=== PATIENT | male | born 1945 | race Caucasian/White ===

== ENCOUNTER → 2017-03-13 | Outpatient (CLI) | payer MEDICARE, BC ==
[2015-03-02 05:02] VITALS: BP 142/92
[~2017-03-13] MED LIST: BENICAR HCT 12.1 TA1 PO; BETAPACE120 MG PO; FUROSEMIDE40 MG PO; GOOD NEIGHBOR P81 MG PO; HYTRIN5 M1 PO; IRBESARTAN PO; NOVAPLUS DE100 MG/ML; ZOCOR10 MG PO; [UNRECOGNIZED DRUG - OTHER] PO
== END ==
LOC: RAD 11:52
DX: R42 Dizziness and giddiness (principal); R03.0 Elevated blood-pressure reading, without diagnosis of hypertension; J32.0 Chronic maxillary sinusitis

== ENCOUNTER → 2017-04-21 | Outpatient (CLI) | payer MEDICARE, BC ==
[2015-03-02 05:02] VITALS: BP 142/92
== END ==
LOC: RAD 10:12
DX: N20.0 Calculus of kidney (principal)

== ENCOUNTER → 2017-12-23 | Outpatient (CLI) | payer MEDICARE, BC ==
[2015-03-02 05:02] VITALS: BP 142/92
== END ==
LOC: RAD 08:48
DX: N20.0 Calculus of kidney (principal)

== ENCOUNTER → 2018-05-25 | Outpatient (CLI) | payer MEDICARE, BC | LOC: RAD 13:18 | DX: N20.0 Calculus of kidney (principal) ==

== ENCOUNTER 2019-01-07 11:00 | Outpatient (RCR) | payer MEDICARE, BC ==
[2015-03-02 05:02] VITALS: BP 142/92
[~2019-01-07 11:00] MED LIST changes: +ASPIRIN E.C. 8181 MG PO; +BETAPACE120 M1 PO; -BETAPACE120 MG PO; -GOOD NEIGHBOR P81 MG PO
== END 2019-01-07 11:30 | disposition still patient (30) ==
LOC: PT 11:00
DX: M54.2 Cervicalgia (principal)

== ENCOUNTER 2019-01-07 11:30 | Outpatient (RCR) | payer MEDICARE, BC ==
[2015-03-02 05:02] VITALS: BP 142/92
[2019-01-14] MEDS ORDERED: HYDROCHLOROTHIA50 M1 PO (18:35)
[2019-01-14] MEDS ORDERED: SERTRALINE HYD100 MG PO (18:36)
[2019-01-14] MEDS ORDERED: REQUIP XL12 MG PO (18:36)
[2019-01-14] MEDS ORDERED: SINGULAIR PO (18:37)
[2019-01-14] MEDS ORDERED: SINEMET 25-1001 EACH PO (18:41)
[2019-01-14] MEDS ORDERED: LOPRESSOR 550 MG/TAB PO (18:42)
[2019-01-14] MEDS ORDERED: AVAPRO300 M1 PO (18:43)
[2019-01-14] MEDS ORDERED: ATORVASTATIN CA80 MG PO (20:40)
== END 2019-02-09 | disposition home or self-care (01) ==
LOC: PT
DX: G20 Parkinson's disease (principal); G25.81 Restless legs syndrome

== ENCOUNTER 2019-01-14 17:26 | Observation (INO) | payer MEDICARE, BC ==
[~2019-01-14] VITALS: Ht 185.4 cm; Wt 122.6 kg
[2019-01-14 18:14] VITALS: BP 127/70
[2019-01-14 18:19] LABS: EOS % 0.4 % (0.0-4.0); HEMATOCRIT 41.5 % (42.0-52.0); HEMOGLOBIN 13.6 g/dL (13.5-18.0); LYMPH# 0.8 (1.50-4.00); MEAN CELL VOLUME 95 fl (78-100); MEAN CORPUSCULAR HEMOGLOBIN 31 pg (27-31); MEAN CORPUSCULAR HGB CONC 33 g/dL (33-37); MONO # 0.6 (0.20-0.80); NEU # 4.1 (1.40-6.50); PLATELET COUNT 162 K/mm3 (130-400); RED BLOOD COUNT 4.36 M/mm3 (4.20-5.60); RED CELL DISTRIBUTION WIDTH 13.8 % (11.5-14.5); WHITE BLOOD COUNT 5.6 K/mm3 (4.8-10.8)
[2019-01-14 18:31] LABS: ALBUMIN 4.1 g/dL (3.4-4.8); POTASSIUM 3.5 mmol/L (3.5-5.1); SODIUM 139 mmol/L (136-145)
[2019-01-14 18:32] LABS: CALCIUM 9.3 mg/dL (8.3-10.5)
[2019-01-14 18:33] LABS: GLUCOSE 103 mg/dL (75-110)
[2019-01-14 18:34] LABS: CARBON DIOXIDE 29 mmol/L (23-31)
[2019-01-14 18:35] LABS: TOTAL BILIRUBIN 3.2 mg/dL (0.2-1.2)
[2019-01-14] MEDS ORDERED: HYDROCHLOROTHIA50 M1 PO (18:35)
[2019-01-14] MEDS ORDERED: SERTRALINE HYD100 MG PO (18:36)
[2019-01-14] MEDS ORDERED: REQUIP XL12 MG PO (18:36)
[2019-01-14] MEDS ORDERED: SINGULAIR PO (18:37)
[2019-01-14 18:38] LABS: AST-SGOT 30 U/L (5-34)
[2019-01-14 18:40] LABS: ALT/SGPT 31 U/L (0-55)
[2019-01-14] MEDS ORDERED: SINEMET 25-1001 EACH PO (18:41)
[2019-01-14] MEDS ORDERED: LOPRESSOR 550 MG/TAB PO (18:42)
[2019-01-14] MEDS ORDERED: AVAPRO300 M1 PO (18:43)
[2019-01-14 18:47] LABS: TROPONIN-I < 0.03 ng/mL (<0.030)
[2019-01-14 19:46] LABS: URINE WBC 0 /hpf (0-3)
[2019-01-14 20:16] LABS: URINE APPEARANCE CLEAR; URINE BILIRUBIN 2+ (NEGATIVE); URINE BLOOD NEGATIVE (NEGATIVE); URINE COLOR AMBER; URINE GLUCOSE NEGATIVE (NEGATIVE); URINE KETONE NEGATIVE (NEGATIVE); URINE LEUKOCYTE ESTERASE NEGATIVE (NEGATIVE); URINE NITRATE NEGATIVE (NEGATIVE); URINE PROTEIN(semi-quant) TRACE mg/dL (NEGATIVE); URINE UROBILINOGEN 1 mg/dL (NORMAL)
[2019-01-14 20:17] LABS: URINE MUCUS PRESENT (NOT PRESENT)
[2019-01-14] MEDS ORDERED: ATORVASTATIN CA80 MG PO (20:40)
[2019-01-14 22:35] VITALS: BP 147/77
[2019-01-14 23:00] VITALS: BP 123/72
[2019-01-15 03:00] VITALS: BP 118/60
[2019-01-15 06:12] VITALS: BP 130/79
[2019-01-15 08:40] LABS: CALCIUM 8.5 mg/dL (8.3-10.5); POTASSIUM 3.1 mmol/L (3.5-5.1)
[2019-01-15 09:17] LABS: TOTAL PROTEIN 5.7 g/dL (6.2-8.1)
[2019-01-15 09:20] LABS: ALBUMIN 3.5 g/dL (3.4-4.8)
[2019-01-15 11:08] VITALS: BP 139/78
[2019-01-15 14:58] VITALS: BP 102/64
== END 2019-01-15 18:00 | disposition home health service (06) ==
LOC: ED 17:26 → MED/SURG 19:45
PROVIDERS: Nurse Practitioner Primary Care; ADMIT Physician Assistant
DX: E86.0 Dehydration (principal); I95.1 Orthostatic hypotension; N28.9 Disorder of kidney and ureter, unspecified; G20 Parkinson's disease; Z91.81 History of falling; E80.7 Disorder of bilirubin metabolism, unspecified; M25.562 Pain in left knee; Z79.82 Long term (current) use of aspirin; Z79.899 Other long term (current) drug therapy
CPT/HCPCS: 90715; G0378; J1650; J7030; Q9967

== ENCOUNTER → 2019-01-18 | Outpatient (CLI) | payer MEDICARE, BC ==
[2019-01-15 14:58] VITALS: BP 102/64
[~2019-01-18] MED LIST changes: +ATORVASTATIN CA80 MG PO; +AVAPRO300 M1 PO; +HYDROCHLOROTHIA50 M1 PO; +LOPRESSOR 550 MG/TAB PO; +REQUIP XL12 MG PO; +SERTRALINE HYD100 MG PO; +SINEMET 25-1001 EACH PO; +SINGULAIR PO
== END ==
LOC: RAD 11:20
DX: I65.29 Occlusion and stenosis of unspecified carotid artery (principal); W19.XXXA Unspecified fall, initial encounter

== ENCOUNTER → 2019-01-21 | Outpatient (CLI) | payer MEDICARE, BC ==
[2019-01-15 14:58] VITALS: BP 102/64
== END ==
LOC: VAS 15:52 → RAD 16:00
DX: R29.6 Repeated falls (principal)

== ENCOUNTER 2020-04-24 15:37 | Emergency (ER) | payer MEDICARE, BC ==
[~2020-04-24] VITALS: Wt 118.0 kg
[2020-04-24 17:10] LABS: HEMATOCRIT 41.4 % (42.0-52.0); HEMOGLOBIN 13.3 g/dL (13.5-18.0); MEAN CELL VOLUME 97 fl (78-100); MEAN CORPUSCULAR HEMOGLOBIN 31 pg (27-31); MEAN CORPUSCULAR HGB CONC 32 g/dL (33-37); MEAN PLATELET VOLUME 9.9 fl (7.4-10.4); PLATELET COUNT 135 K/mm3 (130-400); POTASSIUM 3.7 mmol/L (3.5-5.1); RED BLOOD COUNT 4.27 M/mm3 (4.20-5.60); WHITE BLOOD COUNT 5.2 K/mm3 (4.8-10.8)
[2020-04-24 17:13] LABS: TOTAL PROTEIN 6.5 g/dL (6.2-8.1)
[2020-04-24 17:14] LABS: LYMPHOCYTE 13 % (20-51); MONOCYTE 11 % (3-10); NEUTROPHILS 75 % (42-75); TOTAL BILIRUBIN 4.7 mg/dL (0.2-1.2)
[2020-04-24 17:25] LABS: TROPONIN-I 0.04 ng/mL (<0.030)
[2020-04-24 17:42] LABS: PARTIAL THROMBOPLASTIN TIME 25.8 SECONDS (21.0-32.0); PROTHROMBIN TIME 10.8 SECONDS (9.0-12.0)
[2020-04-24 18:57] VITALS: BP 158/84
[2020-04-24 23:56] LABS: URINE APPEARANCE HAZY; URINE BILIRUBIN NEGATIVE (NEGATIVE); URINE BLOOD TRACE (NEGATIVE); URINE COLOR YELLOW; URINE GLUCOSE NEGATIVE (NEGATIVE); URINE KETONE NEGATIVE (NEGATIVE); URINE LEUKOCYTE ESTERASE NEGATIVE (NEGATIVE); URINE NITRATE NEGATIVE (NEGATIVE); URINE PROTEIN(semi-quant) TRACE mg/dL (NEGATIVE); URINE UROBILINOGEN NORMAL (NORMAL); URINE WBC 0-1 /hpf (0-3)
[2020-04-24 23:57] LABS: URINE MUCUS PRESENT (NOT PRESENT)
== END 2020-04-24 18:55 | disposition short-term general hospital (02) ==
LOC: ED 15:37
PROVIDERS: Nurse Practitioner
DX: U07.1 COVID-19 (principal); J12.82 Pneumonia due to coronavirus disease 2019; E80.7 Disorder of bilirubin metabolism, unspecified; R74.8 Abnormal levels of other serum enzymes; I48.91 Unspecified atrial fibrillation; I25.10 Atherosclerotic heart disease of native coronary artery without angina pectoris; I10 Essential (primary) hypertension; G20 Parkinson's disease; E78.5 Hyperlipidemia, unspecified; F32.9 Major depressive disorder, single episode, unspecified; Z95.0 Presence of cardiac pacemaker; Z79.82 Long term (current) use of aspirin
CPT/HCPCS: J0456; J0696; J1100; J7030; J7050

== ENCOUNTER → 2021-01-18 | Outpatient (CLI) | payer MEDICARE, BC | LOC: RAD 07:43 | DX: Z13.6 Encounter for screening for cardiovascular disorders (principal); I77.819 Aortic ectasia, unspecified site ==

== ENCOUNTER → 2021-04-05 | Day surgery (SDC) | payer MEDICARE, BC | LOC: MSO 07:26 | DX: D50.9 Iron deficiency anemia, unspecified (principal); K63.5 Polyp of colon; K57.30 Diverticulosis of large intestine without perforation or abscess without bleeding; I48.91 Unspecified atrial fibrillation; I25.10 Atherosclerotic heart disease of native coronary artery without angina pectoris; I10 Essential (primary) hypertension; G20 Parkinson's disease; G47.33 Obstructive sleep apnea (adult) (pediatric); J30.9 Allergic rhinitis, unspecified; E78.2 Mixed hyperlipidemia; F32.A Depression, unspecified; F41.9 Anxiety disorder, unspecified; Z68.39 Body mass index [BMI] 39.0-39.9, adult; Z79.899 Other long term (current) drug therapy; Z95.0 Presence of cardiac pacemaker; Z85.828 Personal history of other malignant neoplasm of skin; E66.9 Obesity, unspecified; Z90.89 Acquired absence of other organs | CPT/HCPCS: 00813; J2704; J7120 ==

== ENCOUNTER → 2022-02-01 | Outpatient (CLI) | payer MEDICARE, BC | LOC: RAD 07:55 | DX: I71.40 Abdominal aortic aneurysm, without rupture, unspecified (principal) ==

== ENCOUNTER → 2024-06-16 | Outpatient (CLI) | payer MEDICARE, BC | LOC: RAD 10:45 | DX: R60.0 Localized edema (principal) ==